=== PATIENT | female | born 2000 | race Caucasian/White ===

== ENCOUNTER 2021-01-31 14:21 | Emergency (ER) | payer BC, SELFPAY ==
[2021-01-31 14:22] VITALS: BP 131/67; PULSE 119; RESP 15; TEMP 37.8; O2SAT 100; BMI 20.3
[2021-01-31 15:05] LABS: Basophils % 0.2 % (0.1-2.0); Eosinophils % 0.4 % (0.1-12.0); Hematocrit 37.3 % (37.0-47.0); Hemoglobin 13.1 g/dL (12.2-16.2); Lymphocytes # 1.7 K/mm3 (0.7-4.5); Mean Corpuscular Hemoglobin 29.8 pg (27.0-31.2); Mean Corpuscular Volume 85.2 fl (81-99); Mean Platelet Volume 8.2 fl (7.4-10.4); Monocytes # 0.7 K/mm3 (0.1-1.0); Monocytes % 6.1 % (1.7-9.3); Neutrophils # 8.7 K/mm3 (1.8-7.8); Neutrophils % 78.4 % (37.0-80.0); Platelet Count 272 K/mm3 (142-424); Red Blood Count 4.38 M/mm3 (4.20-5.40); Red Cell Distribution Width 12.7 % (11.5-17.5); White Blood Count 11.1 K/mm3 (4.5-13.0)
[2021-01-31 15:09] LABS: Microscopic, Urine URINE MICROSCOPIC (MICROSCOPIC)
[2021-01-31 15:17] LABS: Appearance,Urine SL CLOUDY (Clear); Bilirubin,Urine Negative (Negative); Blood, Urine 1+ (Negative); Color,Urine YELLOW (Yellow); Glucose,Urine (UA) Negative (Negative); Ketones,Urine TRACE (Negative); Leukocyte Esterase,Urine 2+ (Negative); Nitrate,Urine POSITIVE (Negative); Protein,Urine 1+ (Negative); Urobilinogen,Urine 0.2 EU/dl (0.2)
[2021-01-31 15:18] LABS: Urine Pregnancy, HCG Qual. Negative (Negative)
[2021-01-31 15:18] LABS: Alanine Aminotransferase 15 U/L (12-78); Albumin Level 4.6 g/dl (3.5-5.0); Albumin/Globulin Ratio 1.2 (1.1-1.8); Alkaline Phosphatase 63 U/L (38-126); Anion Gap 10.1 mEq/L (5-15); Aspartate Amino Transferase 19 U/L (14-36); Blood Urea Nitrogen 6 mg/dl (7-17); Calcium 9.1 mg/dl (8.4-10.2); Carbon Dioxide 23 mmol/L (22.0-30.0); Chloride 106 mmol/L (98-107); Creatinine Clearance Estimated 92 mL/min (50-200); Estimated Glomerular Filt Rate 91 ml/min (>60); GFR (African American) 111 ML/MIN (>60); Globulin 3.8 g/dL (1.3-3.2); Glucose 116 mg/dl (74-100); Lipase 17 U/L (23-300); Potassium 3.1 mmoL/L (3.5-5.1); Sodium 136 mmol/L (136-145); Total Protein,Serum 8.4 g/dl (6.3-8.2)
[2021-01-31 15:23] LABS: Bacteria,Urine 1+ /lpf; Squamous Epithelial Cell,Urine Occasional #/hpf (0-5); WBC,Urine 50-100 #/hpf (0-3)
--- NOTE | 2021-01-31 15:33 | CT_ITS ---
PROCEDURE INFORMATION: Exam: CT Abdomen And Pelvis Without Contrast Exam date and time: 01/31/2021 3:33 PM Age: 20 years old Clinical indication: Abdominal pain; Patient HX: Left flank pain TECHNIQUE: Imaging protocol: Computed tomography of the abdomen and pelvis without contrast. Radiation optimization: All CT scans at this facility use at least one of these dose optimization techniques: automated exposure control; mA and/or kV adjustment per patient size (includes targeted exams where dose is matched to clinical indication); or iterative reconstruction. COMPARISON: No relevant prior studies available. FINDINGS: Liver: Mild hepatomegaly. Gallbladder and bile ducts: Normal Pancreas: Normal. Spleen: Normal. Adrenal glands: Normal. No mass. Kidneys and ureters: Minimal left hydroureteronephrosis, without definite obstructive etiology identified. Stomach and bowel: Normal. Appendix: No evidence of appendicitis. Intraperitoneal space: Small amount of pelvic free fluid, likely physiologic. Vasculature: Phleboliths within the pelvis. Lymph nodes: Unremarkable. No enlarged lymph nodes. Urinary bladder: Unremarkable as visualized. Reproductive: Unremarkable as visualized. Bones/joints: No acute abnormality. Soft tissues: Normal. IMPRESSION: Minimal left hydroureteronephrosis, without definite obstructive etiology identified. Findings may be secondary to recently passed calculus or occult obstruction.
--- NOTE | 2021-01-31 15:33 | CT_ITS ---
PROCEDURE INFORMATION: Exam: CTA Chest With Contrast Exam date and time: 01/31/2021 3:33 PM Age: 20 years old Clinical indication: Pain and abnormal findings; Left-sided; Patient HX: Fever, left sided chest pain, elevated d-dimer; Additional info: Flank pain TECHNIQUE: Imaging protocol: Computed tomographic angiography of the chest with contrast. 3D rendering (Not supervised by radiologist): MIP and/or 3D reconstructed images were created by the technologist. Radiation optimization: All CT scans at this facility use at least one of these dose optimization techniques: automated exposure control; mA and/or kV adjustment per patient size (includes targeted exams where dose is matched to clinical indication); or iterative reconstruction. Contrast material: ISOVUE 370; Contrast volume: 70 ml; Contrast route: INTRAVENOUS (IV); COMPARISON: No relevant prior studies available. FINDINGS: Pulmonary arteries: Normal. No pulmonary emboli. Aorta: Unremarkable. No aortic aneurysm. No aortic dissection. Lungs: Unremarkable. No consolidation. No masses. Pleural spaces: Unremarkable. No pneumothorax. No pleural effusion. Heart: Unremarkable. No cardiomegaly. No pericardial effusion. Lymph nodes: Unremarkable. No enlarged lymph nodes. Bones/joints: Unremarkable. No acute fracture. Soft tissues: Unremarkable. IMPRESSION: No acute findings.
--- NOTE | 2021-01-31 15:48 | [facility].EDGENADL ---
ED Disposition Clinical Impression: UTI (urinary tract infection) Qualifiers: Urinary tract infection type: acute cystitis Hematuria presence: with hematuria Qualified Code(s): N30.01 - Acute cystitis with hematuria Disposition: Home, Self-Care Condition on Discharge: Good Instructions: DI for Urinary Tract Infection (UTI) Prescriptions: cephALEXin [Cephalexin 500mg Tab] 500 mg PO BID 10 Days #20 tab Prescription Printed Referrals: Provider,MD Pia [Primary Care Provider] - Colt Carrillo MD [Staff Physician] - - Critical Care Critical Care Time: No Attestation: On 01/31/21, the high probability of a clinically significant, sudden or life threatening deterioration of the following system(s) required my full and direct attention, intervention and personal management. The time I documented below is in addition to time spent performing reported procedures but includes the following listed in this critical care notation. Medical Decision Making - Medical Records Medical records reviewed: Yes: I reviewed the patient's medical records. - Dominic Inquiry Pt receiving controlled substance: No Vital Signs: 01/31/21 14:22 01/31/21 16:49 Temperature 100.1 F H Temperature Source Oral Pulse Rate 100 H Pulse Rate [Left Radial] 119 H Respiratory Rate 15 Blood Pressure 108/67 L Blood Pressure [Right Arm] 131/67 Blood Pressure Mean [Right Arm] 88 Blood Pressure Source Automatic Cuff Blood Pressure Source [Right Arm] Automatic Cuff Blood Pressure Position Sitting Blood Pressure Position [Right Arm] Sitting 02 Sat by Pulse Oximetry 100 99 Oxygen Delivery Method Room Air Room Air - Lab Data Lab Results 01/31/21 14:50: WBC 11.1, RBC 4.38, Hgb 13.1, Hct 37.3, MCV 85.2, MCH 29.8, MCHC 35.0, RDW 12.7, Plt Count 272, MPV 8.2, Neut % (Auto) 78.4, Lymph % (Auto) 15.0, [place] % (Auto) 6.1, Eos % (Auto) 0.4, Baso % (Auto) 0.2, Neut # (Auto) 8.7 H, Lymph # (Auto) 1.7, [place] # (Auto) 0.7, Eos # (Auto) 0.0, Baso # (Auto) 0.0 01/31/21 14:50: Sodium 136, Potassium 3.1 L, Chloride 106, Carbon Dioxide 23, Anion Gap 10.1, BUN 6 L, Creatinine 0.80, Estimated Creat Clear 92, Estimated GFR 91, Est GFR ( Amer) 111, Glucose 116 H, Calcium 9.1, Total Bilirubin 1.0, AST 19, ALT 15, Alkaline Phosphatase 63, Total Protein 8.4 H, Albumin 4.6, Globulin 3.8 H, Albumin/Globulin Ratio 1.2, Lipase 17 L 01/31/21 15:00: Urine Color Yellow, Urine Appearance Sl cloudy, Urine pH 6.0, Ur Specific [place] 1.020, Urine Protein 1+, Urine Glucose (UA) Negative, Urine Ketones Trace, Urine Blood 1+, Urine Nitrate Positive, Urine Bilirubin Negative, Urine Urobilinogen 0.2, Ur Leukocyte Esterase 2+ A, Urine RBC 10-20, Urine WBC 50-100, Ur Squamous Epith Cells Occasional, Urine Bacteria 1+ 01/31/21 15:00: Urine HCG, Qual Negative 01/31/21 15:00: D-Dimer 1.30 H Result diagrams: 01/31/21 14:50 01/31/21 14:50 Orders (Tests/Meds): ED MEDICATIONS Discontinued Medications Generic Name Dose Route Start Last Admin Trade Name Freq PRN Reason Stop Dose Admin Sodium Chloride 1,000 mls @ 999 mls/hr 01/31/21 14:45 01/31/21 14:53 Sod Chlor 0.9% 1000ml Bag IV 01/31/21 15:45 999 mls/hr .Q1H1M FUNMI Administration Iopamidol 70 ml 01/31/21 16:23 01/31/21 16:25 Iopamidol-370 (76%);100ml Bottle IV 01/31/21 16:24 70 ml ONCE ONE Administration Ketorolac Tromethamine 30 mg 01/31/21 14:39 01/31/21 14:52 Ketorolac 30mg/Ml Vial IV 01/31/21 14:40 30 mg ONCE ONE Administration Ondansetron HCl 4 mg 01/31/21 14:39 01/31/21 14:52 Ondansetron 4mg/2ml Vial IV 01/31/21 14:40 4 mg ONCE ONE Administration Sodium Chloride 50 ml 01/31/21 16:23 01/31/21 16:25 0.9 % Sodium Chloride 50 Ml Vial IV 01/31/21 16:24 50 ml ONCE ONE Administration Sodium Chloride 10 ml 01/31/21 16:23 01/31/21 16:25 Sodium Chloride 0.9% 10ml Syr (Rad Only) IV 01/31/21 16:24 10 ml ONCE ONE Administration ORDERS Category D
[2021-01-31 16:49] VITALS: BP 108/67; PULSE 100; O2SAT 99
[2021-01-31 17:00] VITALS: BP 117/65; PULSE 99; O2SAT 100
[2021-01-31 17:31] VITALS: BP 110/62; PULSE 103; O2SAT 96
[2021-01-31 18:02] VITALS: BP 110/62; PULSE 103; RESP 16; TEMP 37.8; O2SAT 99
== END 2021-01-31 18:03 | disposition home or self-care (01) ==
PROVIDERS: Emergency Provider Emergency Medicine
DX: N30.01 Acute cystitis with hematuria (principal)
CPT/HCPCS: 71275; 74176; 80053; 81001; 81025; 83690; 85025; 85378; 87086; 87088; 87186; 96365; 96375; 99283; J2405; Q9967